=== PATIENT | female | born 1990 | race Caucasian/White ===

== ENCOUNTER 2016-12-01 02:13 | Emergency (ER) | payer BC, SELFPAY ==
[~2016-12-01] VITALS: Ht 172.7 cm; Wt 67.1 kg
[~2016-12-01 02:13] MED LIST: IRON
[2016-12-01 02:17] VITALS: BP 129/88
[2016-12-01] MEDS ORDERED: PROPARACAINE OPHTH 0.5%, 15ML ONE (02:23)
[2016-12-01] MEDS ORDERED: FLUORESCEIN OPHTHALMIC 1 MG STRIP ONE (02:23)
[2016-12-01] MEDS ORDERED: HYDROcodone/APAP 5/325 TABLET ONE (03:23)
[2016-12-01] MEDS ORDERED: FLUORESCEIN OPHTHALMIC 1 MG STRIP EACHEYE ONE (03:30)
[2016-12-01] MEDS ORDERED: PROPARACAINE OPHTH 0.5%, 15ML EACHEYE ONE (03:30)
[2016-12-01] MEDS ORDERED: HYDROcodone/APAP 5/325 TABLET PO ONE (03:30)
== END 2016-12-01 03:42 | disposition home or self-care (01) ==
LOC: ED 03:26
DX: S05.02XA Injury of conjunctiva and corneal abrasion without foreign body, left eye, initial encounter (principal); H10.023 Other mucopurulent conjunctivitis, bilateral; X58.XXXA Exposure to other specified factors, initial encounter; Y93.89 Activity, other specified; Y92.89 Other specified places as the place of occurrence of the external cause; Y99.8 Other external cause status
CPT/HCPCS: 99283

== ENCOUNTER → 2017-01-05 | Outpatient (CLI) | payer BC ==
[~2017-01-05] MED LIST changes: +FLUT15.88 NS; +NORG1TAB57 PO
== END ==
LOC: STAR 10:46
PROVIDERS: ATTEND Otolaryngology
DX: Z02.9 Encounter for administrative examinations, unspecified (principal)

== ENCOUNTER 2017-01-11 11:03 | Day surgery (SDC) | payer BC ==
[~2017-01-11] VITALS: Ht 174 cm; Wt 64.0 kg
[2017-01-11] MEDS ORDERED: FLUORESCEIN OPHTHALMIC 1 MG STRIP ONE (11:33)
[2017-01-11] MEDS ORDERED: OXYMETAZOLINE NASAL SPRAY 0.05%, 15ML ONE (11:33)
[2017-01-11] MEDS ORDERED: EPINEPHRINE 1 MG/ML, 1ML ONE (11:34)
[2017-01-11] MEDS ORDERED: EPINEPHRINE TOPICAL SOLN 1 MG/ML, 30ML ONE (11:34)
[2017-01-11] MEDS ORDERED: BACITRACIN OINT 500U/GM, 15 GM ONE (11:34)
[2017-01-11] MEDS ORDERED: BACITRACIN 50,000 UNIT ONE (11:34)
[2017-01-11] MEDS ORDERED: LIDOCAINE/PF 1%, 30ML ONE (11:34)
[2017-01-11 11:58] VITALS: BP 112/72
[2017-01-11 12:29] LABS: HCG UR OBC PASS
[2017-01-11] MEDS ORDERED: DIAZEPAM 10 MG TABLET PO ONE (12:42)
[2017-01-11] MEDS ORDERED: DIAZEPAM 5 MG TABLET ONE (12:45)
[2017-01-11] MEDS ORDERED: FENTANYL PF 250 MCG/5ML ONE (13:03)
[2017-01-11] MEDS ORDERED: SCOPOLAMINE PATCH, 1.5MG PATCH.TD72 TD ONE ×2 (13:19)
[2017-01-11] MEDS ORDERED: GLYCOPYRROLATE 0.2MG/1ML ONE (13:35)
[2017-01-11] MEDS ORDERED: CEFAZOLIN 1,000 MG ONE (13:35)
[2017-01-11] MEDS ORDERED: ROCURONIUM 10 MG/ML ONE (13:35)
[2017-01-11] MEDS ORDERED: PROPOFOL 10 MG/ML, 20ML ONE (13:35)
[2017-01-11] MEDS ORDERED: ONDANSETRON 2MG/ML, 2ML ONE (13:35)
[2017-01-11] MEDS ORDERED: NEOSTIGMINE 1 MG/ML, 10ML ONE (13:35)
[2017-01-11] MEDS ORDERED: DEXAMETHASONE 4 MG/ML, 1ML ONE (13:35)
[2017-01-11] MEDS ORDERED: PROMETHAZINE 25 MG/ML, 1ML IV PRN (15:00)
[2017-01-11] MEDS ORDERED: MIDAZOLAM 1 MG/ML, 2ML IV PRN (15:00)
[2017-01-11] MEDS ORDERED: ONDANSETRON 2MG/ML, 2ML IVPush PRN (15:00)
[2017-01-11] MEDS ORDERED: ACETAMINOPHEN 325 MG TABLET PO PRN (15:00)
[2017-01-11] MEDS ORDERED: OXYcodone 5 MG/5 ML ORAL.SOL UDC PO PRN (15:00)
[2017-01-11] MEDS ORDERED: MEPERIDINE/PF 25MG/0.5ML IVPush PRN (15:00)
[2017-01-11] MEDS ORDERED: HYDROcodone/APAP 7.5-325MG/15ML UDC PO PRN (15:00)
[2017-01-11] MEDS ORDERED: ACETAMINOPHEN 650 MG/20.3 ML UDC ONE (16:06)
[2017-01-11] MEDS ORDERED: FENTANYL PF 100 MCG/2ML ONE (16:06)
[2017-01-11] MEDS ORDERED: OXYcodone 5 MG/5 ML ORAL.SOL UDC ONE (16:06)
[2017-01-11] MEDS: FENTANYL PF 100 MCG/2ML IV PRN ×2 (16:19→16:25)
[2017-01-11] MEDS ORDERED: HYDROmorphone 1 MG/ML, 1ML ONE (16:32)
[2017-01-11] MEDS: HYDROmorphone 1 MG/ML, 1ML IV PRN ×2 (16:33→16:52)
[2017-01-11] MEDS ORDERED: MIDAZOLAM 1 MG/ML, 2ML ONE (16:52)
== END 2017-01-11 19:05 | disposition home or self-care (01) ==
LOC: OUT 11:03
PROVIDERS: ATTEND Otolaryngology
DX: J35.03 Chronic tonsillitis and adenoiditis (principal); J32.8 Other chronic sinusitis; J34.89 Other specified disorders of nose and nasal sinuses; D64.9 Anemia, unspecified; K08.409 Partial loss of teeth, unspecified cause, unspecified class; Z72.89 Other problems related to lifestyle; Z82.49 Family history of ischemic heart disease and other diseases of the circulatory system; Z82.2 Family history of deafness and hearing loss
CPT/HCPCS: 31255; 31256; 36415; 42821; 81025; 85025; 85730; 88304; J0171; J0690; J1100; J1170; J2250; J2405; J2704; J2710; J3010; J3490

== ENCOUNTER 2017-01-16 23:59 | Emergency (ER) | payer BC ==
[~2017-01-16] VITALS: Ht 165.1 cm; Wt 72.0 kg
[2017-01-17] MEDS ORDERED: TRANEXAMIC ACID 100 MG/ML, 10ML IV STA (00:34)
[2017-01-17 02:28] VITALS: BP 122/74
== END 2017-01-17 02:31 | disposition home or self-care (01) ==
LOC: ED 23:59
DX: J95.830 Postprocedural hemorrhage of a respiratory system organ or structure following a respiratory system procedure (principal); Z90.49 Acquired absence of other specified parts of digestive tract
CPT/HCPCS: 36415; 85025; 86850; 86900; 99283

== ENCOUNTER 2017-01-17 12:49 | Inpatient (IN) | payer BC ==
[~2017-01-17] VITALS: Ht 172.7 cm; Wt 62.8 kg
[~2017-01-17 12:49] MED LIST changes: +CEFAZOLIN 1,000 MG ONE; +DEXAMETHASONE 4 MG/ML, 1ML ONE; +ONDANSETRON 2MG/ML, 2ML ONE; +PROPOFOL 10 MG/ML, 20ML ONE; +ROCURONIUM 10 MG/ML ONE; +SUCCINYLCHOLINE 20 MG/ML, 10ML ONE
[2017-01-17] MEDS ORDERED: PLEASE ENTER HEIGHT AND WEIGHT MC SCH (13:30)
[2017-01-17 13:41] VITALS: BP 111/77
[2017-01-17] MEDS ORDERED: LACTATED RINGERS 1,000 ML IV SCH ×2 (14:00→16:00)
[2017-01-17] MEDS ORDERED: morphine SULFATE 10 MG/ML, 1ML IV PRN (14:30)
[2017-01-17] MEDS: ONDANSETRON 2MG/ML, 2ML IV PRN ×2 (15:45→22:33)
[2017-01-17 16:04] LABS: HCG UR OBC PASS
[2017-01-17] MEDS ORDERED: BACITRACIN OINT 500U/GM, 15 GM ONE (16:35)
[2017-01-17] MEDS ORDERED: OXYMETAZOLINE NASAL SPRAY 0.05%, 15ML ONE (16:35)
[2017-01-17] MEDS ORDERED: LIDOCAINE/PF 1.5%-EPI 1:200K, 30ML ONE (16:38)
[2017-01-17] MEDS ORDERED: MIDAZOLAM 1 MG/ML, 2ML ONE (16:53)
[2017-01-17] MEDS ORDERED: FENTANYL PF 250 MCG/5ML ONE (16:53)
[2017-01-17] MEDS ORDERED: THROMBIN 5,000 UNIT VIAL TP ONE (17:29)
[2017-01-17] MEDS ORDERED: PROMETHAZINE 25 MG/ML, 1ML IV PRN (17:30)
[2017-01-17] MEDS ORDERED: ACETAMINOPHEN 325 MG TABLET PO PRN (17:30)
[2017-01-17] MEDS ORDERED: OXYcodone 5 MG/5 ML ORAL.SOL UDC PO PRN (17:30)
[2017-01-17] MEDS ORDERED: MEPERIDINE/PF 25MG/0.5ML IVPush PRN (17:30)
[2017-01-17] MEDS ORDERED: FENTANYL PF 100 MCG/2ML ONE (18:11)
[2017-01-17] MEDS ORDERED: HYDROmorphone 1 MG/ML, 1ML ONE ×2 (18:11→18:37)
[2017-01-17] MEDS: FENTANYL PF 100 MCG/2ML IV PRN ×2 (18:15→18:25)
[2017-01-17] MEDS: HYDROmorphone 1 MG/ML, 1ML IV PRN ×5 (18:20→18:50)
[2017-01-17 20:00] VITALS: BP 104/59
[2017-01-17] MEDS: LACTATED RINGERS 1,000 ML IV SCH (20:10)
[2017-01-17] MEDS: OXYcodone IR 5MG TABLET PO PRN (23:31)
[2017-01-18] MEDS: OXYcodone IR 5MG TABLET PO PRN ×3 (05:00→14:14)
[2017-01-18] MEDS: LACTATED RINGERS 1,000 ML IV SCH (05:00)
[2017-01-18 08:00] VITALS: BP 107/65
[2017-01-18] MEDS: ACETAMINOPHEN 325 MG TABLET PO PRN ×2 (08:26→12:45)
== END 2017-01-18 15:30 | disposition home or self-care (01) | DRG 909 ==
LOC: INTOOBSV 12:49 → 3WST 12:49 → EDSTATUS 17:00 → OBSVTOIN 01-18 09:33
PROVIDERS: ADMIT Otolaryngology; ATTEND Otolaryngology
PROC: 0W33XZZ Control Bleeding in Oral Cavity and Throat, External Approach (ICD-10-PCS; principal; 2017-01-18)
PROC: 09CR4ZZ Extirpation of Matter from Left Maxillary Sinus, Percutaneous Endoscopic Approach (ICD-10-PCS; 2017-01-18)
PROC: 09CQ4ZZ Extirpation of Matter from Right Maxillary Sinus, Percutaneous Endoscopic Approach (ICD-10-PCS; 2017-01-18)
PROC: 095L4ZZ Destruction of Nasal Turbinate, Percutaneous Endoscopic Approach (ICD-10-PCS; 2017-01-18)
DX: J95.830 Postprocedural hemorrhage of a respiratory system organ or structure following a respiratory system procedure (principal); Y83.6 Removal of other organ (partial) (total) as the cause of abnormal reaction of the patient, or of later complication, without mention of misadventure at the time of the procedure; J32.9 Chronic sinusitis, unspecified
CPT/HCPCS: 36415; 81025; 85025; 85610; 85730; 86850; 86900; G0378; J0690; J1100; J1170; J2250; J2405; J2704; J3010; J3490; J0330; J2270; J7120